=== PATIENT | female | born 1955 | race Caucasian/White ===

== ENCOUNTER → 2024-06-10 13:11 | Outpatient (REF) | payer OTHER, SELFPAY | LOC: HWRAD 13:11 | PROVIDERS: ATTENDING PHYSICIAN Nurse Practitioner Primary Care | DX: E03.8 Other specified hypothyroidism (principal); Z13.820 Encounter for screening for osteoporosis | CPT/HCPCS: 76536 ==

== ENCOUNTER → 2024-07-10 12:36 | Outpatient (REF) | payer OTHER, SELFPAY | LOC: WDC 12:36 | PROVIDERS: ATTENDING PHYSICIAN Nurse Practitioner Primary Care | DX: Z12.31 Encounter for screening mammogram for malignant neoplasm of breast (principal) | CPT/HCPCS: 77063; 77067 ==

== ENCOUNTER 2024-10-22 06:25 | Day surgery (SDC) | payer OTHER, SELFPAY | END 2024-10-22 09:56 | disposition home or self-care (01) | LOC: GI 06:25 | PROVIDERS: ATTENDING PHYSICIAN Specialist | DX: Z12.11 Encounter for screening for malignant neoplasm of colon (principal); D12.3 Benign neoplasm of transverse colon; K57.30 Diverticulosis of large intestine without perforation or abscess without bleeding; K56.2 Volvulus; K22.89 Other specified disease of esophagus; K31.89 Other diseases of stomach and duodenum; F45.8 Other somatoform disorders; R05.3 Chronic cough | CPT/HCPCS: 45385; 43239; 88305; 88342 ==